=== PATIENT | female | born 1985 | race Caucasian/White ===

== ENCOUNTER → 2017-12-14 12:51 | Outpatient (CLI) | payer OTHER, SELFPAY ==
[2017-12-14 15:15] LABS: HCG Quantitative /Beta subunit 56.27 mIU/mL
== END ==
PROVIDERS: Visit Provider Obstetrics & Gynecology
DX: N91.2 Amenorrhea, unspecified (principal)
CPT/HCPCS: 36415; 84702

== ENCOUNTER → 2018-07-11 14:01 | Outpatient (CLI) | payer OTHER, SELFPAY ==
--- NOTE | 2018-07-11 | DI.US.S_ITS ---
PROCEDURE: US PERIPH VENOUS LOW EXTREM LT INDICATIONS: Pain in left lower leg TECHNIQUE: Real-time imaging, as well as color and pulse Doppler interrogation, were performed of the lower extremity deep veins from the inguinal ligament to the popliteal fossa. COMPARISON: None. FINDINGS: The common femoral, femoral and popliteal veins are normally compressible, and free of intraluminal thrombus. Color and pulse Doppler demonstrate normal phasic intraluminal flow. There is normal augmentation response to distal compression maneuver. IMPRESSION: No deep venous thrombosis identified within the left lower extremity. Dictated by: Aristides [place] [facility] Interpreted: Chante Silver MD on 07/11/2018 at 15:23 Approved by: Chante Silver MD, PhD on 07/11/2018 at 18:04
== END ==
PROVIDERS: PCP Internal Medicine; Visit Provider Internal Medicine
DX: M79.662 Pain in left lower leg (principal)
CPT/HCPCS: 93971

== ENCOUNTER → 2019-02-22 10:35 | Outpatient (CLI) | payer BC, SELFPAY ==
--- NOTE | 2019-02-22 | DI.US.S_ITS ---
PROCEDURE: US OB <= 14 WEEKS FETUS INDICATIONS: INITIAL SIZING AND DATING OUTSIDE/PRIOR DATING DATA: Last menstrual period (LMP): 12/30/18. . First dating scan (date and location): This study.. Estimated date of delivery (LIYAH) from first dating scan: 10/04/19. TECHNIQUE: Real-time scanning was performed of the fetus and maternal pelvic organs, with image documentation. Endovaginal scanning was also performed to better visualize the fetus and maternal ovaries. COMPARISON: None. FINDINGS: Embryo: [place]-rump length 1.6 cm correlates with a gestational age of 8 weeks 0 days, plus or -5 days. heart rate 158 beats per minute. Measurement variability in dating: +/- 4 weeks by LMP, +/- 7 days by mean sac diameter (use before 6 weeks gestation if crown-rump length not able to be measured), +/- 5 days by crown-rump length (up to 8 weeks 6 days gestation), +/- 7 days by crown-rump length (up to 13 weeks 6 days gestation). Maternal organs: Ovaries not seen on the right and normal on the left with a corpus luteum cyst. Limited images through the kidneys demonstrate no hydronephrosis. IMPRESSION: Single living intrauterine gestation 8 weeks 0 days gestational age, with delivery date projected to be centered on 10/04/19, plus or -5 days. Dictated by: Tom Chen M.D. on 02/22/2019 at 14:53 Approved by: Tom Chen M.D. on 02/22/2019 at 15:06
== END ==
PROVIDERS: PCP Internal Medicine; Visit Provider Internal Medicine
DX: Z34.91 Encounter for supervision of normal pregnancy, unspecified, first trimester (principal); Z3A.08 8 weeks gestation of pregnancy
CPT/HCPCS: 76801; 76817

== ENCOUNTER 2019-03-22 02:02 | Emergency (ER) | payer BC, SELFPAY ==
[2019-03-22 02:11] VITALS: BP 130/64; PULSE 104; RESP 16; TEMP 36.8; O2SAT 98; BMI 56.1
--- NOTE | 2019-03-22 02:18 | ED.PREGNANCY ---
HPI - General Chief complaint: OB/Uterine Contractions Stated complaint: 12 weeks - bleeding Time Seen by Provider: 03/22/19 02:18 Source: patient Mode of arrival: Family Vehicle Limitations: no limitations History of Present Illness HPI Narrative: The patient is . Her LMP was December 2018. She had an ultrasound identifying an 8 week intrauterine . About noon today she developed vaginal bleeding. She describes ongoing, heavy bleeding. She has no cramping. She did not pass tissue. She has had no recent illness, no fever chills. She has no GI complaints of nausea, vomiting diarrhea. She is not having abdominal pain. She has no urinary symptoms. She is aware that her blood type is A positive. Patient : Yes Review of Systems Constitutional Constitutional: Denies chills, Denies fatigue and Denies fever(s) Cardiovascular Cardiovascular: Denies chest pain and Denies dyspnea Respiratory Respiratory: Denies dyspnea Gastrointestinal Gastrointestinal: Denies abdominal pain, Denies constipation, Denies cramping, Denies diarrhea and Denies vomiting Genitourinary Comments: Heavy vaginal bleeding Musculoskeletal Musculoskeletal: Denies back pain Integumentary/Breasts Skin/Breast: Denies rash and Denies sores Endocrine Endocrine: Denies fatigue PMFSH - Past Medical History Medical history: Reports no medical history Surgical history: Reports no surgical history Patient : Yes Psychiatric history: Reports no psych history Exam Initial Vital Signs Initial Vital Signs: Vital Signs Temperature 98.3 F 03/22/19 02:11 Pulse Rate 104 H 03/22/19 02:11 Respiratory Rate 16 03/22/19 02:11 Blood Pressure 130/64 03/22/19 02:11 Pulse Oximetry 98 03/22/19 02:11 Const General: cooperative and well developed Nutritional Appearance: well nourished Other: Very upset. Resp Effort & Inspection: normal respiratory effort and able to speak in complete sentences Auscultation: clear to auscultation bilaterally, no rales, no rhonchi and no wheezes Cardio Rate: regular rate Rhythm: regular rhythm Heart Sounds: S1 normal, no click, no gallops, no murmurs and no rubs Pulses: normal peripheral pulses GI Inspection: non-distended Palpation: soft, no hepatosplenomegaly, No guarding, No pulsatile mass and No tender Auscultation: normal bowel sounds Back/Spine/Pelvis Back: No CVA tenderness Skin General: no rashes or lesions noted Neuro General: alert, oriented x3, gait normal and no focal motor deficits Speech: speech normal Extrem General: No edema Course Orders Ordered: ED Orders 03/22/19 02:34 US OB <= 14 weeks fetus Stat 03/22/19 02:53 ABO RH Type Urgent CBC Auto Diff [Complete Blood Count AUTO DIFF] Stat Vital Signs Vital signs: Vital Signs - 8 hr 03/22/19 02:11 Temperature 98.3 F Pulse Rate 104 H Respiratory Rate 16 Blood Pressure 130/64 Pulse Oximetry 98 MDM - OB/Uterine Contractions Lab Data Result diagrams: 03/22/19 02:53 Labs: Lab Results 03/22/19 03/22/19 Range/Units 02:53 02:53 WBC 8.6 (4.5-11.0) X10^3/uL RBC 4.59 (4.0-5.2) X10^6/uL Hgb 13.6 (12.0-16.0) g/dL Hct 40.2 (36-46) % MCV 87.6 (80-100) fL MCH 29.7 (26-34) PG MCHC 33.9 (30-36) % RDW 13.3 (11.6-14.8) % Plt Count 265 (150-400) X10^3/uL Neut % (Auto) 75.2 H (50-75) % Lymph % (Auto) 17.8 L (25-40) % [place] % (Auto) 5.6 (3-14) % Eos % (Auto) 0.9 L (2-4) % Baso % (Auto) 0.5 (0-2) % Neut # (Auto) 6500 (9205-6674) /uL Lymph # (Auto) 1500 (7022-8592) /uL [place] # (Auto) 500 (0-900) /uL Eos # (Auto) 100 (0-450) /uL Baso # (Auto) 0 (0-100) /uL Blood Type A Positive Urine Dip Bedside Urine Glucose Negative Bedside Urine Bilirubin - Negative Bedside Urine Ketone - Negative Urine Specific [place] 1.010 Bedside Urine Occult Blood +++ Bedside Urine pH 6.5 Bedside Urine Protein - Negative Bedside Urine Urobilinogen - Negative Bedside Urine Nitrite - Negative Bedside Urine Leukocytes - Negative Esterase Imaging Data Ob ultrasound: Radiologist's Impression: 12+5 healthy IUP. No source of bleeding identified. Discharge Plan Departure Patient Disposition: Home Clinical Impression: 12 weeks gestation of , First trimester bleeding Instructions: DI for Threatened Activity Restrictions/Additional Instructions: Ultrasound tonight reveals a 12+ 5 week healthy . No source of bleeding was identified. Rest at home. Follow-up with your OB provider over the next few days. Return here as needed. Referrals: Zoraida Chin ARNP [Primary Care Provider] -
--- NOTE | 2019-03-22 02:34 | DI.US.S_ITS ---
PROCEDURE: US OB <= 14 WEEKS FETUS INDICATIONS: BLEEDING OUTSIDE/PRIOR DATING DATA: Last menstrual period (LMP): 12/30/18. First dating scan (date and location): 02/22/19. Estimated date of delivery (LIYAH) from first dating scan: 10/04/19. TECHNIQUE: Real-time scanning was performed of the fetus and maternal pelvic organs, with image documentation. Endovaginal scanning was also performed to better visualize the fetus and maternal ovaries. COMPARISON: Merged With [facility], , OB <= 14 WEEKS FETUS, 02/22/2019, 11:13. FINDINGS: Embryo: Combined data from BPD, head circumference, abdominal circumference and femur length yield a current gestational age of 12 weeks 5 days, and from first OB ultrasound current estimated gestational age would be 12 weeks 0 days. This is within the range of measurement variability, appropriate interval growth. Measurement variability in dating: +/- 4 weeks by LMP, +/- 7 days by mean sac diameter (use before 6 weeks gestation if crown-rump length not able to be measured), +/- 5 days by crown-rump length (up to 8 weeks 6 days gestation), +/- 7 days by crown-rump length (up to 13 weeks 6 days gestation). Maternal organs: Ovaries not seen.. Limited images through the kidneys demonstrate no hydronephrosis. IMPRESSION: Appropriate interval growth, no anomalies seen. Limited early gestation examination, and followup anatomic survey is recommended at approximately 20 weeks gestation. A perigestational hemorrhage is not found nor is there evidence of placenta previa.. Dictated by: Tom Chen M.D. on 03/22/2019 at 12:03 Approved by: Tom Chen M.D. on 03/22/2019 at 12:07
[2019-03-22 03:14] LABS: Add Manual Diff / Slide Review NO; Basophils Absolute Auto 0 /uL (0-100); Basophils Percent Auto 0.5 % (0-2); Eosinophils Absolute Auto 100 /uL (0-450); Eosinophils Percent Auto 0.9 % (2-4); Hematocrit 40.2 % (36-46); Hemoglobin 13.6 g/dL (12.0-16.0); Lymphocytes Absolute Auto 1500 /uL (1100-4500); Lymphocytes Percent Auto 17.8 % (25-40); Mean Corpuscular HGB Conc 33.9 % (30-36); Mean Corpuscular Hemoglobin 29.7 PG (26-34); Mean Corpuscular Volume 87.6 fL (80-100); Monocytes Absolute Auto 500 /uL (0-900); Monocytes Percent Auto 5.6 % (3-14); Neutrophils Absolute Auto 6500 /uL (1500-7000); Neutrophils Percent Auto 75.2 % (50-75); Platelet Count 265 X10^3/uL (150-400); Red Blood Cell Count 4.59 X10^6/uL (4.0-5.2); Red Cell Distribution Width 13.3 % (11.6-14.8); White Blood Cell Count 8.6 X10^3/uL (4.5-11.0)
== END 2019-03-22 04:34 | disposition home or self-care (01) ==
PROVIDERS: Emergency Provider Emergency Medicine; PCP Internal Medicine
DX: O20.0 Threatened abortion (principal); Z3A.12 12 weeks gestation of pregnancy
CPT/HCPCS: 36415; 76801; 76817; 81003; 85025; 86900; 86901; 99283; 99284

== ENCOUNTER → 2019-04-08 09:22 | Outpatient (CLI) | payer OTHER, SELFPAY ==
--- NOTE | 2019-04-08 09:27 | DIET.PN ---
Dietary Progress Note Assessment: 14w, food aversions: no chicken, eggs, no particular cravings at this time but not hungry but gets hungry fast. Pt is 346# and does not want to gain weight during , would prefer to stay wt stable or lose weight. Also wants to ensure she puts in place healthy habits now to support her health and that of baby. Pt is looking for healthy things which are easy to support baby's growth, Dr. Cole patient. HT: 5'6 WT: 346# UBW: -10# BMI:55.8 Usual Intake: 530 wakes preps lunches and snacks B(630am): oatmeal c cinnamon and sugar, fried egg sandwich c moses or ketchup on white bread, PB toast, water Sn(830): swedish yogurt, smart pop popcorn, apple and mini oranges, almonds, carrots, sliced cheese L (2pm): vegetable soup, PBandJ, [employer]-chop salad, leftovers, water not usually snack here D: pizza (marshallese jernigan pineapple, cheese, pepperoni), veggie sandwich [employer], grilled hamburgers, spaghetti c hamburger Bed at 9pm Takes MVI no current physical activity but sometimes walks with coworker around [employer] plans to Nutrition Diagnosis: obesity r/t undesirable food choices aeb pt reliant on convenience foods c high fat and high carbohydrates, 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 Interventions: 1. Pt will walk 10 minutes or more after dinner and possibly bigger walk on weekends. 2. Pt will follow gestational diabetic diet sticking to 30g CHO per meal and 15g for snacks as much as possible. 3. Pt will focus on getting 100g PRO per day, healthy fats, iron foods, and 3 servings calcium per day to support baby growth. EER: 2,000kcal, 100g PRO (0.8g/kg) Monitoring/Evaluations: pt will schedule f/u after GD testing.
== END ==
PROVIDERS: PCP Internal Medicine; Referring Provider Student in an Organized Health Care Education/Training Program; Visit Provider Student in an Organized Health Care Education/Training Program
DX: O99.212 Obesity complicating pregnancy, second trimester (principal); Z3A.14 14 weeks gestation of pregnancy; Z71.3 Dietary counseling and surveillance; Z68.43 Body mass index [BMI] 50.0-59.9, adult
CPT/HCPCS: 97802

== ENCOUNTER → 2019-08-16 12:12 | Outpatient (CLI) | payer OTHER, SELFPAY ==
--- NOTE | 2019-08-16 | DI.US.S_ITS ---
PROCEDURE: US OB LIMITED INDICATIONS: GROWTH OUTSIDE/PRIOR DATING DATA: Last menstrual period (LMP): 12/30/18. LMP-based estimated date of delivery (LIYAH): 10/07/19. First dating scan (date and location): 02/22/19. Estimated date of delivery (LIYAH) from first dating scan: 10/04/19. TECHNIQUE: Real-time scanning was performed of the fetus, with image documentation and biometric measurements. Endovaginal scanning: Not needed for this study. COMPARISON: [facility], OB <= 14 WEEKS FETUS, 03/22/2019, 3:36. [facility], OB <= 14 WEEKS FETUS, 02/22/2019, 11:13. FINDINGS: General: A single living intrauterine gestation is present. Presentation: Vertex Placenta: Placental position is posterior, without previa. Amniotic fluid index: 13.1 cm, normal range is 5-24 cm. heart rate: 144 beats per minute. Maternal cervical canal: 4.4 cm long. Normal lower limit is 2.5 cm. biometrics: Biparietal diameter: 8.3 cm, 33 weeks 4 days Head circumference: 32.0 cm, 36 weeks 1 day Abdominal circumference: 29.3 cm, 33 weeks 2 days Femur length: 6.9 cm, 33 weeks 2 days Estimated gestational age from initial scan: 33 weeks 0 days Composite gestational age from present scan: 34 weeks 1 day Estimated weight and percentile: 2238 g, 61st percentile Measurement variability for biometric dating: +/- 7 days from 14 weeks to 15 weeks 6 days gestation, +/- 10 days from 16 weeks to 21 weeks 6 days gestation, +/- 2 weeks from 22 weeks to 27 weeks 6 days gestation, +/- 3 weeks for 28 weeks gestation or later. weight reference: 4500 g or EFW >90/95% is considered macrosomia or large for gestational age. EFW <10% is small for gestational age. EFW 5% or less is considered intra-uterine growth restriction. Other: Not applicable. IMPRESSION: Apart from interval growth, no anomaly seen. Somewhat limited quality of visualization due to body habitus. Dictated by: Tom Chen M.D. on 08/16/2019 at 16:25 Approved by: Tom Chen M.D. on 08/16/2019 at 16:32
== END ==
PROVIDERS: PCP Internal Medicine; Referring Provider Student in an Organized Health Care Education/Training Program; Visit Provider Student in an Organized Health Care Education/Training Program
DX: Z36.89 Encounter for other specified antenatal screening; Z3A.34 34 weeks gestation of pregnancy
CPT/HCPCS: 76815

== ENCOUNTER → 2019-09-06 12:48 | Outpatient (ROUT) | payer OTHER, SELFPAY ==
[2019-09-07 14:23] LABS: Strep Grp B PCR NEG for Grp B Strep
== END ==
PROVIDERS: PCP Internal Medicine; Visit Provider Student in an Organized Health Care Education/Training Program
DX: Z34.90 Encounter for supervision of normal pregnancy, unspecified, unspecified trimester (principal)
CPT/HCPCS: 87653

== ENCOUNTER 2019-09-20 13:12 | Observation (INO) | payer OTHER, SELFPAY ==
--- NOTE | 2019-09-20 13:18 | DI.US.S_ITS ---
PROCEDURE: US OB BIOPHYSICAL PROFILE INDICATIONS: HTN OUTSIDE/PRIOR DATING DATA: Last menstrual period (LMP): December 30, 2018 LMP-based estimated date of delivery (LIYAH): October 07, 2019 . First dating scan (date and location): February 22, 2019, [facility]. Estimated date of delivery (LIYAH) from first dating scan: October 04, 2019 . TECHNIQUE: Real-time scanning was performed of the fetus for biophysical profile, with image documentation. Color and pulse Doppler interrogation was also performed of the umbilical artery near its insertion into the placenta. COMPARISON: None. FINDINGS: General: A single living intrauterine gestation is present. Presentation: Vertex Placenta: Placental position is fundal , without previa. Amniotic fluid index: 14.1 cm, normal range is 5-24 cm. heart rate: 121 beats per minute. Maternal cervical canal: Not Seen in late stage of Estimated gestational age from initial scan: 38 weeks 0 days. Biophysical profile: Tone: 2 points. Movement: 2 points. Respiration: 2 points. Largest pocket of fluid: 2 points. IMPRESSION: Single living late 3rd trimester intrauterine . Ultrasound biophysical profile is 10/13 Dictated by: Phill Cervantes M.D. on 09/20/2019 at 16:37 Approved by: Phill Cervantes M.D. on 09/20/2019 at 16:40
[2019-09-20 14:35] LABS: Add Manual Diff / Slide Review NO; Basophils Absolute Auto 0 /uL (0-100); Basophils Percent Auto 0.4 % (0-2); Eosinophils Absolute Auto 0 /uL (0-450); Eosinophils Percent Auto 0.4 % (2-4); Hematocrit 38.9 % (36-46); Hemoglobin 13.2 g/dL (12.0-16.0); Lymphocytes Absolute Auto 1300 /uL (1100-4500); Lymphocytes Percent Auto 17.3 % (25-40); Mean Corpuscular Hemoglobin 30.6 PG (26-34); Mean Corpuscular Volume 90.1 fL (80-100); Monocytes Absolute Auto 500 /uL (0-900); Monocytes Percent Auto 6.4 % (3-14); Neutrophils Absolute Auto 5700 /uL (1500-7000); Neutrophils Percent Auto 75.5 % (50-75); Platelet Count 138 X10^3/uL (150-400); Red Blood Cell Count 4.32 X10^6/uL (4.0-5.2); Red Cell Distribution Width 14.3 % (11.6-14.8); White Blood Cell Count 7.6 X10^3/uL (4.5-11.0)
[2019-09-20 14:48] LABS: Alanine Aminotransferase 15 IU/L (<35); Albumin 3.1 g/dL (3.5-5.0); Albumin Globulin Ratio 1.2 (1.0-2.8); Alkaline Phosphatase 167 U/L (38-126); Aspartate Aminotransferase 20 IU/L (14-36); BUN Creatinine Ratio 16.9 (6-22); Bilirubin Total 0.5 mg/dL (0.2-1.3); Blood Urea Nitrogen 13 mg/dL (7-17); Calcium 9.1 mg/dL (8.4-10.2); Carbon Dioxide 21 mmol/L (22-32); Chloride 107 mmol/L (98-107); Estimated Glomerular Filt Rate > 60.0 mL/min (>60); Globulin 2.5 g/dL (1.7-4.1); Glucose 73 mg/dL (70-100); HEMOLYSIS < 15 (0-50); Potassium 4.3 mmol/L (3.4-5.1); Sodium 132 mmol/L (137-145); Total Protein 5.6 g/dL (6.3-8.2); Uric Acid 7.5 mg/dL (2.5-6.2)
[2019-09-20 16:28] LABS: Creatinine Urine Random 82.9 mg/dL; Protein (Total) Urine Random 10 mg/dL (0-12); Protein Creatinine Ratio Urine 0.12 GRAM/24H
== END 2019-09-20 17:25 | disposition home or self-care (01) ==
PROVIDERS: Admitting Provider Student in an Organized Health Care Education/Training Program; PCP Internal Medicine; Referring Provider Student in an Organized Health Care Education/Training Program; Visit Provider Student in an Organized Health Care Education/Training Program
DX: O13.3 Gestational [pregnancy-induced] hypertension without significant proteinuria, third trimester (principal); O09.513 Supervision of elderly primigravida, third trimester; Z3A.38 38 weeks gestation of pregnancy
CPT/HCPCS: 36415; 59025; 59050; 76819; 80053; 82570; 84156; 84550; 85025; G0378; G0379

== ENCOUNTER 2019-09-23 14:10 | Inpatient (IN) | payer OTHER, SELFPAY ==
--- NOTE | 2019-09-23 14:34 | DI.US.S_ITS ---
PROCEDURE: US OB BIOPHYSICAL PROFILE INDICATIONS: POSSIBLE PRE-ECLAMPSIA OUTSIDE/PRIOR DATING DATA: Last menstrual period (LMP): December 30, 2018 . LMP-based estimated date of delivery (LIYAH): October 07, 2019 . First dating scan (date and location): February 22, 2019, [facility] . Estimated date of delivery (LIYAH) from first dating scan: October 04, 2019 . TECHNIQUE: Real-time scanning was performed of the fetus, with image documentation and biometric measurements. Biophysical profile was also obtained. Endovaginal scanning: Not performed COMPARISON: [facility], , OB BIOPHYSICAL PROFILE, 09/20/2019, 13:42. FINDINGS: General: A single living intrauterine gestation is present. Presentation: Vertex. Placenta: Placental position is fundal , without previa. Amniotic fluid index: 15.9 cm, normal range is 5-24 cm. heart rate: 136 beats per minute. Maternal cervical canal: Not visualized Biophysical profile: Tone: 2 points. Movement: 2 points. Respiration: 2 points. Largest pocket of fluid: 2 points. IMPRESSION: 8/8 biophysical profile. Dictated by: Anna Montalvo M.D. on 09/23/2019 at 15:56 Approved by: Anna Montalvo M.D. on 09/23/2019 at 15:57
[2019-09-23 15:08] LABS: Add Manual Diff / Slide Review NO; Basophils Absolute Auto 0 /uL (0-100); Basophils Percent Auto 0.4 % (0-2); Eosinophils Absolute Auto 0 /uL (0-450); Eosinophils Percent Auto 0.5 % (2-4); Hematocrit 36.5 % (36-46); Hemoglobin 12.6 g/dL (12.0-16.0); Lymphocytes Absolute Auto 1400 /uL (1100-4500); Lymphocytes Percent Auto 18.3 % (25-40); Mean Corpuscular HGB Conc 34.4 % (30-36); Monocytes Absolute Auto 600 /uL (0-900); Monocytes Percent Auto 7.5 % (3-14); Neutrophils Absolute Auto 5500 /uL (1500-7000); Neutrophils Percent Auto 73.3 % (50-75); Platelet Count 134 X10^3/uL (150-400); Red Blood Cell Count 4.06 X10^6/uL (4.0-5.2); Red Cell Distribution Width 14.6 % (11.6-14.8); White Blood Cell Count 7.6 X10^3/uL (4.5-11.0)
[2019-09-23 15:20] LABS: Aspartate Aminotransferase 19 IU/L (14-36); BUN Creatinine Ratio 14.9 (6-22); Blood Urea Nitrogen 10 mg/dL (7-17); Estimated Glomerular Filt Rate > 60.0 mL/min (>60); Uric Acid 7.4 mg/dL (2.5-6.2)
[2019-09-23 15:47] LABS: Creatinine Urine Random 42.8 mg/dL; Protein (Total) Urine Random 15 mg/dL (0-12); Protein Creatinine Ratio Urine 0.35 GRAM/24H
--- NOTE | 2019-09-23 16:12 | PM.OBHP.1 ---
OB HPI Date/Time Date of admission: 09/23/19 Time Patient Seen: 19:02 History of Present Condition Chief complaint: NST Narrative: Eda Stacy is a 34 year old at 38w3d with LIYAH of 10/04/2019 perfirst trimester ultrasound. She presents with preeclampsia with severe features. Her course has been complicated by: 1. Elevated blood pressure at 38w0d. Was 160/110 in clinic but otherwise completely asymptomatic. Was sent to OB triage for serial blood pressure monitoring. Her blood pressure was initially elevated but did come down into the normal range. Protein to creatinine ratio 0.12. BPP 8/8. Uric acid, 7.5, platelets 138 (baseline 180, 2 weeks prior). She was sent home on bedrest and completed a 24 hour urine protein which was 390 yesterday. This morning, she reported that her home blood pressures were ranging between 130-150/80-100 and she was brought back for induction. Initial blood pressures were in the severe range 177/96 and did not come down, after labetalol, she is now 140/80s. PIH labs significant for an elevated protein:creatinine ratio of 0.35, uric acid of 7.4 and platelets of 134. BPP again 8/8. 2. Morbid obesity, pregravid BMI 57.83. Patient has been on a prophylactic gestational diet from the beginning of her . She has had a net 5 pound weight loss. Baseline A1c 5.0 on 04/05/18. Second trimester screening for gestational diabetes at 23 WGA within normal limits, third trimester glucola 126. Has completed anesthesia consult for epidural and pre-delivery planning due to obesity. Level II US for survey, within normal limits on 05/30/19. US for growth at 34 WGA, 61%. Has been on prophylactic aspirin 81 mg by mouth qd from 12 weeks to reduce risk of preeclampsia. 3. Hypothyroidism, TSH within normal limits at intake, 23 WGA, and 32 WGA. On levothyroxine 75 mcg by mouth qd. 4. Peripheral edema with venous stasis, chronic, likely secondary to obesity. Has been using compressions stockings. 5. First trimester bleeding, resolved. LABS/IMAGING: ABO A positive, antibody negative on 03/13/2019. Rubella immune. Hepatitis-B surface antigen negative. HIV, HSV 1 and 2 negative. GC/chlamydia negative. Treponemal antibody negative. Varicella titer positive. Pap smear plus HPV DNA negative on 03/09/2019. Urine culture negative on 03/09/2019. Hemoglobin/hematocrit 12.9/38.1 on 03/13/2019. Repeat hemoglobin/hematocrit 13.1/39.3 09/06/2019. TSH within normal limits. 1 hour Glucola negative on 06/07/19 and 07/19/19. GBS negative on 09/06/2019. NIPT negative, 03/13/2019, male. Dating US: 02/23/2020, 8w0d, LIYAH 10/04/2019 First trimester US for bleedin03/22/19, normal Anatomy Scan: 05/09/19, normal, EFW 87%, posterior placenta, no previa Growth Scan: 08/16/19, EFW 61%, 2238 g, RYAN 13.1, vertex BPP: 09/20/19, 10/13 BPP: 09/23/19, 10/13 OBSTETRIC HISTORY: GYNECOLOGICAL HISTORY: Chlamydia, distant history PAST MEDICAL HISTORY: Morbid obesity Hypothyroidism Dependent edema, chronic Cellulitis, leg Depression/anxiety PAST SURGICAL HISTORY: None FAMILY HISTORY: Mother: asthma, depression SOCIAL HISTORY: Engaged to [employer], [employer], involved and supportive. 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 Associates degree. No illicit drug use or alcohol use during . Evaluation Evaluation Laboratory results: Laboratory Tests 09/23/19 09/23/19 09/23/19 15:00 15:00 15:00 WBC 7.6 RBC 4.06 Hgb 12.6 Hct 36.5 MCV 90.0 MCH 31.0 MCHC 34.4 RDW 14.6 Plt Count 134 L Neut % (Auto) 73.3 Lymph % (Auto) 18.3 L [place] % (Auto) 7.5 Eos % (Auto) 0.5 L Baso % (Auto) 0.4 Neut # (Auto) 5500 Lymph # (Auto) 1400 [place] # (Auto) 600 Eos # (Auto) 0 Baso # (Auto) 0 BUN 10 Creatinine 0.67 Estimated GFR > 60.0 BUN/Creatinine Ratio 14.9 Uric Acid 7.4 H AST 19 U Random Total Protein 15 H Urine Creatinine 42.8 Protein/Creatinin Ratio 0.35 PFSH Social History Smoking Status: Never smoker Meds Home Medications and Allergies Allergies Allergy/AdvReac Type Severity Reaction Status Date / Time Sulfa (Sulfonamide AdvReac Severe Swelling Verified 09/23/19 17:49 Antibiotics) of the Eye Review of Systems Review of Systems ROS: Yes All systems reviewed with the patient and are negative except as otherwise documented Exam Narrative Exam Narrative: General: NAD Skin: Color unremarkable, no rash nor lesions HEENT: Neck supple with midline trachea Lungs: CTAB Heart: Normal rate, and regular rhythm, S1, S2 normal, no murmur, click, rub or gallop Abdomen: Gravid, soft, non-tender Extremities: DTRs 2+ and symmetric, no clonus or cyanosis. 2+ pitting edema to level of bilateral knees. Pelvis: Normal female external genitalia Presentation: vertex Cervix: FT/0/-3/soft/posterior Monitoring: Variability: Moderate Baseline: 130s Accelerations: Present Decelerations: Absent Contractions: Every 3-7 minutes Strength: Moderate Objective Labs Result Diagrams: 09/23/19 17:25 09/23/19 15:00 Labs: Laboratory Results - last 24 hr 09/23/19 09/23/19 09/23/19 15:00 15:00 15:00 WBC 7.6 RBC 4.06 Hgb 12.6 Hct 36.5 MCV 90.0 MCH 31.0 MCHC 34.4 RDW 14.6 Plt Count 134 L Neut % (Auto) 73.3 Lymph % (Auto) 18.3 L [place] % (Auto) 7.5 Eos % (Auto) 0.5 L Baso % (Auto) 0.4 Neut # (Auto) 5500 Lymph # (Auto) 1400 [place] # (Auto) 600 Eos # (Auto) 0 Baso # (Auto) 0 BUN 10 Creatinine 0.67 Estimated GFR > 60.0 BUN/Creatinine Ratio 14.9 Uric Acid 7.4 H AST 19 U Random Total Protein 15 H Urine Creatinine 42.8 Protein/Creatinin Ratio 0.35 Assessment and Plan Assessment and Plan Assessment and Plan narrative: 1. IUP at 38w3d 2. 3. Preeclampsia with severe features (hypertension) 4. Thrombocytopenia, risk for HELLP 5. Morbid obesity, pre-gravid BMI 57.83 6. Hypothyroidism, controlled, chronic 7. Peripheral edema venous stasis, chronic 8. Depression/anxiety, chronic Plan: Admit to Labor and delivery with preeclampsia orders. Patient has had one dose of labetalol with improvement of blood pressure. Will administer labetalol 20 mg IV for SBP > 160 or DBP >105. Magnesium 6 g bolus followed by 2 g per hour infusion. Patient has an unripe cervix, will proceed with Cytotec ripening followed by Pitocin induction. Patient has been counseled regarding increased risks of gestational diabetes, preeclampsia, large for gestational age infants, shoulder dystocia, etc. since her intake appointment secondary to her morbid obesity. She has had a net weight gain of -5 lb throughout this and she did not develop gestational diabetes. EFW at 33 WGA was 61%. Anesthesia was consulted at approximately 35 WGA with respect to delivery planning, she is approved for an epidural. Anticipate vaginal delivery. Questions answered, appropriate consents will be signed.
[2019-09-23 17:20] VITALS: BP 183/94; PULSE 53
[2019-09-23] MEDS: LABETALOL 100 MG TABLET 200 MG PO (17:20)
[2019-09-23] MEDS: miSOPROStoL 200 MCG TABLET 50 MCG PO (17:21)
[2019-09-23 17:37] LABS: Add Manual Diff / Slide Review NO; Basophils Absolute Auto 0 /uL (0-100); Basophils Percent Auto 0.6 % (0-2); Eosinophils Absolute Auto 100 /uL (0-450); Eosinophils Percent Auto 0.8 % (2-4); Hematocrit 40.2 % (36-46); Hemoglobin 13.7 g/dL (12.0-16.0); Lymphocytes Absolute Auto 1700 /uL (1100-4500); Lymphocytes Percent Auto 20.5 % (25-40); Mean Corpuscular Hemoglobin 30.8 PG (26-34); Mean Corpuscular Volume 90.4 fL (80-100); Monocytes Absolute Auto 600 /uL (0-900); Monocytes Percent Auto 7.2 % (3-14); Neutrophils Absolute Auto 5800 /uL (1500-7000); Neutrophils Percent Auto 70.9 % (50-75); Platelet Count 151 X10^3/uL (150-400); Red Blood Cell Count 4.44 X10^6/uL (4.0-5.2); Red Cell Distribution Width 14.4 % (11.6-14.8); White Blood Cell Count 8.1 X10^3/uL (4.5-11.0)
[2019-09-23 17:51] LABS: COVID19 -Nasal RAPID Negative (Negative)
[2019-09-23] MEDS: LACTATED RINGERS 1,000 ML 50 ML IV ×2 (17:54→18:00)
[2019-09-23] MEDS: MAGNESIUM SULFATE 4 GM/100 ML PIGGYBACK IV (17:55)
[2019-09-23] MEDS: MAGNESIUM SULFATE 2 GM/50 ML PIGGYBACK IV (19:15)
[2019-09-23] MEDS: MAGNESIUM SULFATE 20 GM/500 ML IV.SOLN IV (19:50)
--- NOTE | 2019-09-23 22:53 | PM.OBPNLAB ---
Date/Time Date Patient Seen: 09/23/19 Time Patient Seen: 22:54 Pain Control Comments: Spoke with nursing staff on phone regarding blood pressures over the last few hours. BPs have remained in the 140/80s, patient denies MCMAHON, n/v, RUQ pain, visual changes, or worsening edema. Repeat CBC showed normalization of platelets. Magnesium is infusing at 2 gm/hour. Second dose of cytotec has not been administered (1 hour ovedue) due to staffing shortages. Hopeful for next dose of cytotec within the hour. baseline has dropped from baseline of 135 to 110-115 since magnesium started. Mg level pending. Assessment: 1. IUP at 38w3d 2. 3. Preeclampsia with severe features (hypertension) 4. Thrombocytopenia, resolved 5. Morbid obesity, pre-gravid BMI 57.83 6. Hypothyroidism, controlled, chronic 7. Peripheral edema venous stasis, chronic 8. Depression/anxiety, chronic Plan: Discussed possible need for transfer if staffing needs cannot be met to proceed with timely induction. Will watch closely over the next few hours.
[2019-09-23 23:05] LABS: Magnesium 4.5 mg/dL (1.6-2.3)
[2019-09-23] MEDS: miSOPROStoL 25 MCG TABLET 50 MCG PO (23:08)
[2019-09-23 23:11] VITALS: BP 165/82; PULSE 59
[2019-09-23] MEDS: LABETALOL 20 MG/4 ML SYRINGE IV (23:11)
[2019-09-24] MEDS: miSOPROStoL 25 MCG TABLET 50 MCG PO (03:53)
[2019-09-24 05:31] LABS: Add Manual Diff / Slide Review NO; Basophils Absolute Auto 0 /uL (0-100); Basophils Percent Auto 0.4 % (0-2); Eosinophils Absolute Auto 0 /uL (0-450); Eosinophils Percent Auto 0.5 % (2-4); Hematocrit 38.8 % (36-46); Hemoglobin 12.9 g/dL (12.0-16.0); Lymphocytes Absolute Auto 1800 /uL (1100-4500); Lymphocytes Percent Auto 20.9 % (25-40); Mean Corpuscular HGB Conc 33.2 % (30-36); Mean Corpuscular Hemoglobin 30.3 PG (26-34); Mean Corpuscular Volume 91.3 fL (80-100); Monocytes Absolute Auto 600 /uL (0-900); Monocytes Percent Auto 7.7 % (3-14); Neutrophils Absolute Auto 5900 /uL (1500-7000); Neutrophils Percent Auto 70.5 % (50-75); Platelet Count 144 X10^3/uL (150-400); Red Blood Cell Count 4.25 X10^6/uL (4.0-5.2); White Blood Cell Count 8.4 X10^3/uL (4.5-11.0)
[2019-09-24 05:49] LABS: Alanine Aminotransferase 14 IU/L (<35); Alanine Aminotransferase 15 IU/L (<35); Albumin 2.9 g/dL (3.5-5.0); Albumin Globulin Ratio 1.1 (1.0-2.8); Albumin Globulin Ratio 1.2 (1.0-2.8); Alkaline Phosphatase 173 U/L (38-126); Alkaline Phosphatase 176 U/L (38-126); Aspartate Aminotransferase 22 IU/L (14-36); Aspartate Aminotransferase 26 IU/L (14-36); BUN Creatinine Ratio 14.5 (6-22); Bilirubin Total 0.4 mg/dL (0.2-1.3); Bilirubin Unconjugated 0.4 mg/dL (0.0-1.1); Blood Urea Nitrogen 10 mg/dL (7-17); Calcium 8.7 mg/dL (8.4-10.2); Carbon Dioxide 19 mmol/L (22-32); Chloride 107 mmol/L (98-107); Estimated Glomerular Filt Rate > 60.0 mL/min (>60); Globulin 2.5 g/dL (1.7-4.1); Globulin 2.6 g/dL (1.7-4.1); Glucose 91 mg/dL (70-100); HEMOLYSIS 15 (0-50); HEMOLYSIS < 15 (0-50); Sodium 132 mmol/L (137-145); Total Protein 5.4 g/dL (6.3-8.2); Total Protein 5.5 g/dL (6.3-8.2); Uric Acid 7.5 mg/dL (2.5-6.2)
[2019-09-24 05:55] LABS: Magnesium 5.4 mg/dL (1.6-2.3)
[2019-09-24] MEDS: MAGNESIUM SULFATE 20 GM/500 ML IV.SOLN IV (06:04)
--- NOTE | 2019-09-24 06:56 | PM.OBDS.1 ---
Discharge Providers Provider Date of admission: 09/23/19 14:10 Discharge Date: 09/24/19 Primary care physician: Nataly Cole MD Consults: 09/24/19 Consult to [facility], Dr. Donya Alvarado, consult for preeclampsia with severe features and risk for HELLP 09/23/19 16:10 Consult to Anesthesiology Routine Comment: Consulting Provider: Anesthesiologist Reason for consultation: epidural Discharge provider: Nataly Cole MD Summary Hospital Course Date Patient Seen: 09/24/19 Time Patient Seen: 06:58 Hospital Course: Upon admission, patient's blood pressure was 177/96, it did not come down with repeat blood pressures. She was administered labetalol 200 mg p.o. x1 as IV access was not yet established. Her blood pressure did come down to 140/80s thereafter. She was also administered a 6 g bolus of magnesium followed by 2 grams/hour infusion. PIH labs significant for an elevated protein:creatinine ratio of 0.35, uric acid of 7.4 and platelets of 138. BPP 8/8. Throughout the night, patient did require 1 additional dose of labetalol, 20 mg IV x1 with good response. However, for the 2nd half of the night, she has remained in the high 150s/90s. This morning she is now sustaining 160s/80s. Due a heart rate of 58, she was given hydralazine x 1 with a drop into the 150s/70s. She continues to deny headache, nausea, vomiting, right upper quadrant pain, visual changes, or worsening edema. DTRs are 2+ and symmetric, no clonus. She does have significant chronic venous stasis with baseline lower extremity edema that has been unchanged in the last few weeks. Repeat platelets approximately 6 hours after admission increased to 151, they are now 144 this morning. heart rate was 135s at baseline, then 110-115 after magnesium and labetalol, now again 130-135s with good accelerations and a few scattered variables. Secondary to automatic serging machine operator shortages, there is an inability to provide intermediate care after 1:00 p.m. today. A concerted effort has been made to find additional help and it is not available. Case was discussed with Dr. Hernandez, on-call AUTOMATIC OPERATOR, and she agrees that as this patient is high risk, transfer to a higher level of care is prudent. Shared decision with patient was made to proceed to transfer to the [facility] where she can have the full resources of a maternal medicine specialist, OBGYN, and NICU if needed. Dr. Donya Alvarado, has kindly agreed to accept patient in transfer of care. She will be transferred by air. COVID-19 negative on 09/23/19. Discharge transfer diagnoses: 1. IUP at 38w4d 2. 3. Preeclampsia with severe features (hypertension) 4. Thrombocytopenia, risk for HELLP 5. Morbid obesity, pre-gravid BMI 57.83 6. Hypothyroidism, controlled, chronic 7. Peripheral edema venous stasis, chronic 8. Depression/anxiety, chronic Status at Discharge Cognitive/behavioral status at discharge: at baseline, oriented Functional status at discharge: independent ambulation Overall status at discharge: patient is not back to baseline Time Spent with Patient Time attestation: Total time spent providing and/or coordinating discharge services: 35 minutes. Greater than 2 hours and 17 minutes from 06:58 to 09:15 was spent [id number] with greater than 50% of the time directed towards stabilizing patient during critical care transport. Objective Labs Result Diagrams: 09/24/19 05:10 09/24/19 05:10 Labs: Laboratory Results - last 24 hr 09/23/19 09/23/19 09/23/19 15:00 15:00 15:00 WBC 7.6 RBC 4.06 Hgb 12.6 Hct 36.5 MCV 90.0 MCH 31.0 MCHC 34.4 RDW 14.6 Plt Count 134 L Neut % (Auto) 73.3 Lymph % (Auto) 18.3 L [place] % (Auto) 7.5 Eos % (Auto) 0.5 L Baso % (Auto) 0.4 Neut # (Auto) 5500 Lymph # (Auto) 1400 [place] # (Auto) 600 Eos # (Auto) 0 Baso # (Auto) 0 Sodium Potassium Chloride Carbon Dioxide BUN 10 Creatinine 0.67 Estimated GFR > 60.0 BUN/Creatinine Ratio 14.9 Glucose Uric Acid 7.4 H Calcium Magnesium Total Bilirubin Conjugated Bilirubin Unconjugated Bilirubin AST 19 ALT Alkaline Phosphatase Total Protein Albumin Globulin Albumin/Globulin Ratio U Random Total Protein 15 H Urine Creatinine 42.8 Protein/Creatinin Ratio 0.35 COVID-19 PCR Blood Type Antibody Screen 07/09/23/19 09/23/19 16:35 17:25 17:25 WBC 8.1 RBC 4.44 Hgb 13.7 Hct 40.2 MCV 90.4 MCH 30.8 MCHC 34.0 RDW 14.4 Plt Count 151 Neut % (Auto) 70.9 Lymph % (Auto) 20.5 L [place] % (Auto) 7.2 Eos % (Auto) 0.8 L Baso % (Auto) 0.6 Neut # (Auto) 5800 Lymph # (Auto) 1700 [place] # (Auto) 600 Eos # (Auto) 100 Baso # (Auto) 0 Sodium Potassium Chloride Carbon Dioxide BUN Creatinine Estimated GFR BUN/Creatinine Ratio Glucose Uric Acid Calcium Magnesium Total Bilirubin Conjugated Bilirubin Unconjugated Bilirubin AST ALT Alkaline Phosphatase Total Protein Albumin Globulin Albumin/Globulin Ratio U Random Total Protein Urine Creatinine Protein/Creatinin Ratio COVID-19 PCR Negative Blood Type A Positive Antibody Screen Negative 09/23/19 09/24/19 09/24/19 22:45 05:10 05:10 WBC 8.4 RBC 4.25 Hgb 12.9 Hct 38.8 MCV 91.3 MCH 30.3 MCHC 33.2 RDW 15.0 H Plt Count 144 L Neut % (Auto) 70.5 Lymph % (Auto) 20.9 L [place] % (Auto) 7.7 Eos % (Auto) 0.5 L Baso % (Auto) 0.4 Neut # (Auto) 5900 Lymph # (Auto) 1800 [place] # (Auto) 600 Eos # (Auto) 0 Baso # (Auto) 0 Sodium Potassium Chloride Carbon Dioxide BUN Creatinine Estimated GFR BUN/Creatinine Ratio Glucose Uric Acid Calcium Magnesium 4.5 H 5.4 H* Total Bilirubin 0.4 Conjugated Bilirubin 0.0 Unconjugated Bilirubin 0.4 AST 26 ALT 15 Alkaline Phosphatase 176 H Total Protein 5.4 L Albumin 2.9 L Globulin 2.5 Albumin/Globulin Ratio 1.2 U Random Total Protein Urine Creatinine Protein/Creatinin Ratio COVID-19 PCR Blood Type Antibody Screen 09/24/19 05:10 WBC RBC Hgb Hct MCV MCH MCHC RDW Plt Count Neut % (Auto) Lymph % (Auto) [place] % (Auto) Eos % (Auto) Baso % (Auto) Neut # (Auto) Lymph # (Auto) [place] # (Auto) Eos # (Auto) Baso # (Auto) Sodium 132 L Potassium 4.0 Chloride 107 Carbon Dioxide 19 L BUN 10 Creatinine 0.69 Estimated GFR > 60.0 BUN/Creatinine Ratio 14.5 Glucose 91 Uric Acid 7.5 H Calcium 8.7 Magnesium Total Bilirubin 0.4 Conjugated Bilirubin Unconjugated Bilirubin AST 22 ALT 14 Alkaline Phosphatase 173 H Total Protein 5.5 L Albumin 2.9 L Globulin 2.6 Albumin/Globulin Ratio 1.1 U Random Total Protein Urine Creatinine Protein/Creatinin Ratio COVID-19 PCR Blood Type Antibody Screen Exam Vital Signs (past 8 hours): - 09/23/19 23:11 Pulse Rate 59 L Blood Pressure 165/82 H Narrative Exam Narrative: General: NAD Skin: Color unremarkable, no rash nor lesions HEENT: Neck supple with midline trachea Lungs: CTAB Heart: Normal rate, and regular rhythm, S1, S2 normal, no murmur, click, rub or gallop Abdomen: Gravid, soft, non-tender Extremities: DTRs 2+ and symmetric, no clonus or cyanosis. 2+ pitting edema to level of bilateral knees. Pelvis: Normal female external genitalia Presentation: vertex Cervix: FT/10/-3/soft/posterior Monitoring: Variability: Moderate Baseline: 130-135s Accelerations: Present Decelerations: Absent Contractions: Every 1-4 minutes Strength: Mild Discharge Plan Discharge Plan Disposition: Xfer Acute Care Hospital Discharge orders & Medications Follow up/Referrals: Zoraida Chin ARNP [Primary Care Provider] - Discharge Data Primary Care Provider: Zoraida Chin Attending Provider: Nataly Cole Admit Date/Time: 09/23/19 14:10
[2019-09-24 07:16] VITALS: BP 163/83; PULSE 60
[2019-09-24] MEDS: HYDRALAZINE 20 MG/ML VIAL 5 MG IV ×2 (07:16→09:15)
[2019-09-24 09:15] VITALS: BP 153/88
== END 2019-09-24 09:30 | disposition short-term general hospital (02) | DRG 832 ==
PROVIDERS: Admitting Provider Student in an Organized Health Care Education/Training Program; PCP Internal Medicine; Referring Provider Student in an Organized Health Care Education/Training Program; Visit Provider Student in an Organized Health Care Education/Training Program
DX: O14.13 Severe pre-eclampsia, third trimester (principal); O99.12 Other diseases of the blood and blood-forming organs and certain disorders involving the immune mechanism complicating childbirth; Z3A.38 38 weeks gestation of pregnancy; O99.214 Obesity complicating childbirth; E66.01 Morbid (severe) obesity due to excess calories; O99.284 Endocrine, nutritional and metabolic diseases complicating childbirth; O12.04 Gestational edema, complicating childbirth; F32.9 Major depressive disorder, single episode, unspecified; F41.9 Anxiety disorder, unspecified
CPT/HCPCS: 36415; 76819; 80053; 80076; 82570; 83735; 84156; 84450; 84550; 85025; 86850; 86900; 86901; 87635; G0378; G0379; J0360; J3475; S0191

== ENCOUNTER → 2021-01-24 10:48 | Outpatient (CLI) | payer OTHER, SELFPAY ==
--- NOTE | 2021-01-24 | DI.RAD.S_ITS ---
PROCEDURE: XR PELVIS 1-2V INDICATIONS: IUD PLACEMENT TECHNIQUE: 1 view(s) of the pelvis acquired. COMPARISON: None. FINDINGS: Bones: No fractures or dislocations. No suspicious bony lesions. Soft tissues: Visualized bowel gas pattern is normal. No suspicious soft tissue calcifications. IUD is centered in the pelvis. IMPRESSION: IUD is centered in the pelvis. Dictated by: Blaze Forde M.D. on 01/24/2021 at 11:55 Approved by: Blaze Forde M.D. on 01/24/2021 at 11:55
== END ==
PROVIDERS: PCP Student in an Organized Health Care Education/Training Program; Referring Provider Family Medicine; Visit Provider Family Medicine
DX: Z30.431 Encounter for routine checking of intrauterine contraceptive device (principal)
CPT/HCPCS: 72170

== ENCOUNTER → 2021-07-07 14:25 | Outpatient (ROUT) | payer OTHER, SELFPAY ==
[2021-07-07 15:07] LABS: Influenza A - CEPHEID Flu A NEGATIVE (NEGATIVE); Influenza B - CEPHEID Flu B NEGATIVE (NEGATIVE)
[2021-07-07 16:21] LABS: COVID-19 CEPHEID PCR (VTM/NP) Negative (Negative)
== END ==
PROVIDERS: PCP Student in an Organized Health Care Education/Training Program; Visit Provider Family Medicine
DX: Z20.822 Contact with and (suspected) exposure to COVID-19 (principal)
CPT/HCPCS: 0240U

== ENCOUNTER → 2021-08-29 08:48 | Outpatient (CLI) | payer OTHER, SELFPAY ==
--- NOTE | 2021-08-29 08:50 | DI.RAD.S_ITS ---
PROCEDURE: XR RIBS LT MIN 3V W CXR1V INDICATIONS: Rib pain TECHNIQUE: 2 views of the left ribs were acquired, along with a single view chest. COMPARISON: None. FINDINGS: Surgical changes and devices: None. Bones and chest wall: No fractures or dislocations. No suspicious bony lesions. Overlying soft tissues appear unremarkable. Lungs and pleura: No pleural effusions or pneumothorax. Lungs appear clear. Mediastinum: Mediastinal contours appear normal. Heart size is normal. IMPRESSION: Chest without acute cardiopulmonary abnormalities or focal airspace disease. No acute/displaced rib fractures identified. Dictated by: Lai Borja M.D. on 08/29/2021 at 10:49 Approved by: Lai Borja M.D. on 08/29/2021 at 10:50
== END ==
PROVIDERS: PCP Internal Medicine; Referring Provider Internal Medicine; Visit Provider Internal Medicine
DX: R07.81 Pleurodynia (principal)
CPT/HCPCS: 71101

== ENCOUNTER → 2021-11-25 15:34 | Outpatient (CLI) | payer OTHER, SELFPAY ==
[2021-11-25 17:58] LABS: HCG Quantitative /Beta subunit 8225 mIU/mL
== END ==
PROVIDERS: PCP Family Medicine; Referring Provider Obstetrics & Gynecology; Visit Provider Obstetrics & Gynecology
DX: O20.9 Hemorrhage in early pregnancy, unspecified (principal); Z3A.00 Weeks of gestation of pregnancy not specified
CPT/HCPCS: 36415; 84702

== ENCOUNTER → 2021-11-27 06:58 | Outpatient (CLI) | payer OTHER, SELFPAY ==
[2021-11-27 09:05] LABS: HCG Quantitative /Beta subunit 6269.6 mIU/mL
== END ==
PROVIDERS: PCP Family Medicine; Referring Provider Obstetrics & Gynecology; Visit Provider Obstetrics & Gynecology
DX: O36.80X0 Pregnancy with inconclusive fetal viability, not applicable or unspecified (principal); Z3A.00 Weeks of gestation of pregnancy not specified
CPT/HCPCS: 36415; 84702

== ENCOUNTER → 2021-12-04 06:58 | Outpatient (CLI) | payer OTHER, SELFPAY ==
[2021-12-04 10:35] LABS: HCG Quantitative /Beta subunit 1644.1 mIU/mL
[2021-12-04 11:40] LABS: COVID19 -Nasal RAPID Negative (Negative)
== END ==
PROVIDERS: PCP Family Medicine; Referring Provider Obstetrics & Gynecology; Visit Provider Obstetrics & Gynecology
DX: Z01.812 Encounter for preprocedural laboratory examination (principal); Z20.822 Contact with and (suspected) exposure to COVID-19; N91.2 Amenorrhea, unspecified
CPT/HCPCS: 36415; 84702; 87635

== ENCOUNTER 2021-12-04 11:12 | Day surgery (SDC) | payer OTHER, SELFPAY ==
[2021-12-03 14:56] VITALS: BMI 59.3
[2021-12-04] VITALS (8 sets, daily range): BP systolic 118–166; BP diastolic 67–88; PULSE 59–94; RESP 10–25; TEMP 36.2–36.4; O2SAT 98–100; BMI 58.1
--- NOTE | 2021-12-04 | PATH_ITS ---
[facility] Accession Number: [id number] . 01 Material submitted: . product of conception - PRODUCTS OF CONCEPTION . 01 Diagnosis: A. Products of Conception, Removal: Immature chorionic villi with fibrosis and focal hydropic change, consistent with products of conception. No evidence of gestational trophoblastic disease or malignancy. Background gestational and inactive endometrium with decidua and features of implantation site. Fibrin and necroinflammatory debris. MRV 12/10/2021 1335 Local . 01 Electronically signed: . Jazzy Mullins MD, Pathologist NPI- [id number] . 01 Gross description: . The specimen is received in formalin labeled with the patient's name and products of conception, and consists of multiple sanders variable spongy to membranous soft tissue fragments admixed with hemorrhagic material aggregating to 7.1 x 4.0 x 1.0 cm. No tissue is identified. [employer] sections are submitted in cassettes A1-A2. ([id number]) /MRV 12/09/2021 1500 Local . 01 Pathologist provided ICD-10: O02.1 . 01 CPT . 183165 Specimen Comment: A courtesy copy of this report has been sent to [phone] Performed at: 01 [facility] [address] [place] [address] [address], [place], [place] [id number] MD Jerald Rose MD Phone: [phone]
[2021-12-04] MEDS: LACTATED RINGERS 1,000 ML 42 ML IV (11:38)
--- NOTE | 2021-12-04 12:20 | P.HP_ITS ---
History of Present Illness History of Present Illness Date Patient Seen: 12/04/21 Time Patient Seen: 12:33 Chief complaint: SUCTION D&C Narrative: Patient is a 36-year-old 3 para 1 with a missed at 6 weeks gestation. She is here for a suction D&C. Patient History Medical History (Updated 11/26/21 @ 13:08 by Frances Hernandez MD) Anxiety delivery delivered Chicken pox Depression Hypothyroidism (~2005) Obesity Pre-eclampsia during in third trimester, antepartum Pre-eclampsia in period PTSD (post-traumatic stress disorder) Shingles Surgical History (Updated 11/06/21 @ 20:05 by Blessing Olivares) H/O tooth extraction Previous section (~09/26/19) [place] teeth extracted Family & Social History Family History (Updated 11/06/21 @ 20:06 by Blessing Olivares) Mother Bipolar 1 disorder Cardiomyopathy Obesity Mental health disorder Father Alcoholism Smoker Hypertension Grandmother Myocardial infarction Obesity Grandmother Vascular dementia CVA (cerebral vascular accident) Brother Smoker Obesity Alcoholism Mental health disorder Social History: household members spouse,children lives independently Yes Tobacco & Substance use: Smoking Status Never smoker alcohol intake never Substance Use Type does not use Meds Home Medications and Allergies Home Medications Medication Instructions Recorded Confirmed Type epinephrine 0.3 mg/0.3 mL 0.3 mg IM ONCE PRN anaphylaxis 10/29/21 12/03/21 History injection, auto-injector (EpiPen) levothyroxine 75 mcg tablet 75 mcg PO DAILY 10/29/21 12/04/21 History Allergies Allergy/AdvReac Type Severity Reaction Status Date / Time bee venom protein (honey bee) Allergy Severe Anaphylaxis Verified 12/04/21 11:31 salmon oil Allergy Intermediate Hives Verified 12/04/21 11:31 Latex, Natural Rubber Allergy Mild Rash Verified 12/04/21 11:31 Sulfa (Sulfonamide Allergy Verified 12/04/21 11:31 Antibiotics) Exam Vital Signs (past 8 hours): - 12/04/21 11:35 Temperature 97.1 F L Pulse Rate 79 Respiratory Rate 20 Blood Pressure 141/80 H Pulse Oximetry 98 Oxygen Delivery Method Room Air Oxygen Delivery Method Room Air Narrative Exam Narrative: Generally: Patient lying on gurney, no acute distress Lungs: Clear to auscultation bilaterally Cardiovascular: Regular rate and rhythm Abdomen: Obese. Well-healed Pfannenstiel scar. Extremities: 1+ edema Assessment & Plan Assessment & Plan narrative: Assessment: 36-year-old 3 para 1 with a missed at 6 weeks gestation Blood type A positive Plan: Suction D&C The risks, benefits, and alternatives to the procedure were explained to the patient. The risks including bleeding, infection, and uterine perforation. She understands these risks and agrees to proceed. A full par Q was held and consent form was signed. COVID-19 COVID-19 status: Negative Result date/Date tested (Pos, Neg/Pending): 12/04/21 Time Spent With Patient Time with patient: less than 30 minutes Critical Care time: I spent a total of [] minutes of critical care time on this patient's care today; this time is exclusive of procedural time.
--- NOTE | 2021-12-04 12:21 | SUR.OPER ---
Lithotomy on padded OR bed, head on pillow, arms secured on padded arm boards at <90 degrees abduction. Legs secured in padded yellow fins stirrups.
--- NOTE | 2021-12-04 12:21 | PM.PREOP ---
Pre-operative Note COVID-19 COVID-19 status: Negative Result date/Date tested (Pos, Neg/Pending): 12/04/21 Criteria for continued procedure: Delay expected to result in less-positive ultimate med/surg outcome Interval Note History & Physical reviewed/Exam performed by Physician: Yes Changes to H&P: No H&P completed within 30 days and has changed as indicated here:: 12/04/21
--- NOTE | 2021-12-04 13:11 | PM.GYNOP.1 ---
Operative Date/Time/Diagnoses Date of procedure: 12/04/21 Time of procedure: 13:11 Pre-op diagnosis: Missed at 6 weeks gestation Post-op diagnosis: same Procedure & Clinicians Procedure: Procedures Operation Date: 12/04/21 12:45 Actual Procedure Side Surgeon sanford Hernandez MD Indications: Missed at 6 weeks gestation Surgeon: Frances Hernandez Anesthesia Type: General (LMA) Operative Notes Findings: 8 week size anteverted uterus Large amount of products conception Closure Type: not applicable Specimen(s): products of conception Estimated blood loss (mL): 100 Blood products transfused: none Procedure in detail: After informed consent was obtained, the patient was taken to the operating room where she was placed in the dorsal supine position. After adequate LMA general anesthesia was achieved, she was placed in the dorsal lithotomy position, and prepped and draped in the usual sterile fashion. A time-out was performed. A bivalve speculum was placed into the vagina and the anterior lip of the cervix was grasped with a single-tooth tenaculum. The cervical os was sequentially dilated until the # 7 curved plastic curette could pass easily into the endometrial cavity. Several passes with suction revealed tissue and fluid. The suction curette was removed. Gentle sharp curettage was performed yielding moderate amount of tissue. Several more passes with suction revealed tissue on the first pass and blood only on the last 2. The curette was removed from the uterus. The single-tooth tenaculum was removed from the anterior lip of the cervix. The bivalve speculum was removed from the vagina. Sponge, lap, and instrument counts were correct x2. The patient tolerated the procedure well, and was taken to PACU in stable condition. Complications: none Post-operative Condition: stable Disposition: PACU Plan for aftercare: Home after recovery
== END 2021-12-04 13:54 | disposition home or self-care (01) ==
PROVIDERS: PCP Family Medicine; Referring Provider Obstetrics & Gynecology; Visit Provider Obstetrics & Gynecology
PROC: (CPT 58120; principal; 2021-12-04 12:45)
DX: O02.1 Missed abortion (principal); Z3A.01 Less than 8 weeks gestation of pregnancy; E03.9 Hypothyroidism, unspecified; F43.10 Post-traumatic stress disorder, unspecified; E66.9 Obesity, unspecified; Z01.812 Encounter for preprocedural laboratory examination; Z20.822 Contact with and (suspected) exposure to COVID-19; N91.2 Amenorrhea, unspecified
CPT/HCPCS: 59820; 36415; 84702; 87635; J1100; J1885; J2250; J2405; J2704; J3010

== ENCOUNTER → 2022-01-15 09:19 | Outpatient (CLI) | payer OTHER, SELFPAY ==
[2022-01-15 11:16] LABS: Free T4, Direct Thyroxine 1.06 ng/dL (0.78-2.19)
[2022-01-15 11:30] LABS: Thyroid Stimulating Hormone 2.58 uIU/mL (0.47-4.68)
[2022-01-19 16:09] LABS: Dilute Russell Viper Venom 45.1 sec (0.0-47.0); Lupus Reflex Interpretation Comment: (.); PTT-LA 42.5 sec (0.0-51.9)
[2022-01-19 21:23] LABS: B2-Glycoprotein I IgA AB < 9 (0-25); B2-Glycoprotein I IgG AB < 9 (0-20); B2-Glycoprotein I IgM AB < 9 (0-32); Cardiolipin Ab IgA < 9 APL U/mL (0-11); Cardiolipin Ab IgG < 9 GPL U/mL (0-14); Cardiolipin Ab IgM < 9 MPL U/mL (0-12); Dilute Russell Viper Venom 37.7 sec (0.0-47.0); Lupus Reflex Interpretation Comment: (.); PTT-LA 31.5 sec (0.0-51.9)
[2022-01-20 14:38] LABS: ANA Screen, IFA Negative (.)
[2022-02-02 10:36] LABS: Cardiolipin IgA Negative (.)
== END ==
PROVIDERS: PCP Family Medicine; Referring Provider Obstetrics & Gynecology; Visit Provider Obstetrics & Gynecology
DX: O26.21 Pregnancy care for patient with recurrent pregnancy loss, first trimester (principal)
CPT/HCPCS: 36415; 83520; 84146; 84439; 84443; 85598; 85613; 85732; 86038; 86146; 86147; 86148

== ENCOUNTER → 2023-10-28 15:29 | Outpatient (CLI) | payer OTHER, SELFPAY ==
[2023-10-28 17:50] LABS: HCG Quantitative /Beta subunit 409.94 mIU/mL
== END ==
PROVIDERS: PCP Family Medicine; Referring Provider Obstetrics & Gynecology; Visit Provider Obstetrics & Gynecology
DX: N96 Recurrent pregnancy loss (principal)
CPT/HCPCS: 36415; 84702

== ENCOUNTER → 2023-10-30 08:05 | Outpatient (CLI) | payer OTHER, SELFPAY ==
[2023-10-30 09:27] LABS: HCG Quantitative /Beta subunit 936.01 mIU/mL
== END ==
PROVIDERS: PCP Family Medicine; Referring Provider Obstetrics & Gynecology; Visit Provider Obstetrics & Gynecology
DX: N96 Recurrent pregnancy loss (principal)
CPT/HCPCS: 36415; 84702

== ENCOUNTER → 2023-11-02 07:15 | Outpatient (CLI) | payer OTHER, SELFPAY ==
[2023-11-02 08:50] LABS: HCG Quantitative /Beta subunit 3219.7 mIU/mL
== END ==
PROVIDERS: PCP Family Medicine; Referring Provider Obstetrics & Gynecology; Visit Provider Obstetrics & Gynecology
DX: N96 Recurrent pregnancy loss (principal); N91.2 Amenorrhea, unspecified
CPT/HCPCS: 36415; 84702

== ENCOUNTER → 2023-11-05 07:52 | Outpatient (CLI) | payer OTHER, SELFPAY ==
[2023-11-05 11:11] LABS: HCG Quantitative /Beta subunit 9095.8 mIU/mL
== END ==
LOC: LAB 07:53
PROVIDERS: PCP Family Medicine; Referring Provider Obstetrics & Gynecology; Visit Provider Obstetrics & Gynecology
DX: N96 Recurrent pregnancy loss (principal); N91.2 Amenorrhea, unspecified
CPT/HCPCS: 36415; 84702

== ENCOUNTER → 2023-11-09 08:14 | Outpatient (CLI) | payer OTHER, SELFPAY ==
[2023-11-09 11:34] LABS: HCG Quantitative /Beta subunit 21508 mIU/mL
== END ==
PROVIDERS: PCP Family Medicine; Referring Provider Obstetrics & Gynecology; Visit Provider Obstetrics & Gynecology
DX: N96 Recurrent pregnancy loss (principal); N91.2 Amenorrhea, unspecified
CPT/HCPCS: 36415; 84702

== ENCOUNTER → 2023-11-23 06:35 | Outpatient (CLI) | payer OTHER, SELFPAY ==
--- NOTE | 2023-11-23 06:37 | DI.US.S_ITS ---
PROCEDURE: US OB <= 14 WEEKS FETUS INDICATIONS: DATES OUTSIDE/PRIOR DATING DATA: Last menstrual period (LMP): 09/26/2023. LMP-based estimated date of delivery (LIYAH): 07/02/2024. First dating scan (date and location): 11/23/2023. Estimated date of delivery (LIYAH) from first dating scan: 07/04/2024. The calculations are made using the ultrasound LIYAH of 07/04/2024. TECHNIQUE: Real-time scanning was performed of the fetus and maternal pelvic organs, with image documentation. Endovaginal scanning was also performed to better visualize the fetus and maternal ovaries. COMPARISON: [facility], US, US OB <= 14 WEEKS FETUS, 11/25/2021, 15:27. FINDINGS: Embryo: 1.6 cm, 8 weeks 0 days Heart rate: 169 beats per minute Other: There is either a subchorionic hemorrhage or an early twin demise measuring 2.7 x 0.9 x 2.6 cm. Maternal organs: Ovaries not visualized.. IMPRESSION: 1. Living early 1st trimester intrauterine with crown-rump length and heartbeat measuring 8 weeks 0 days. 2. There is a crescentic collection present which either represents a small subchorionic hemorrhage or an early twin demise. We strive to produce accurate, complete, and clear reports of imaging services. To assist us in improving patient care, this report was composed using standard report templates and voice recognition software. Therefore, it may contain abnormal punctuation, insertions and/or omissions. Occasional wrong-word or sound-alike substitutions may occur. Though we review the report and make efforts to correct it, we do recommend that the report be read carefully in proper context to recognize any text inaccuracies. Dictated by: Phill Cervantes M.D. on 11/23/2023 at 9:30 Approved by: Phill Cervantes M.D. on 11/23/2023 at 9:32
== END ==
LOC: US 06:36
PROVIDERS: PCP Family Medicine; Referring Provider Obstetrics & Gynecology; Visit Provider Obstetrics & Gynecology
DX: O26.21 Pregnancy care for patient with recurrent pregnancy loss, first trimester (principal); O99.211 Obesity complicating pregnancy, first trimester; E66.01 Morbid (severe) obesity due to excess calories; Z3A.08 8 weeks gestation of pregnancy; Z68.44 Body mass index [BMI] 60.0-69.9, adult
CPT/HCPCS: 76801; 76817

== ENCOUNTER → 2023-12-07 15:00 | Outpatient (CLI) | payer OTHER, SELFPAY ==
[2023-12-07 20:49] LABS: Urine N gonorrhoeae NOT DETECTED
[2023-12-07 20:50] LABS: Urine Chlamydia NOT DETECTED
== END ==
PROVIDERS: PCP Family Medicine; Visit Provider Obstetrics & Gynecology
DX: Z34.81 Encounter for supervision of other normal pregnancy, first trimester (principal); Z3A.10 10 weeks gestation of pregnancy
CPT/HCPCS: 87491; 87591

== ENCOUNTER → 2023-12-07 15:37 | Outpatient (CLI) | payer OTHER, SELFPAY ==
[2023-12-07 16:38] LABS: Add Manual Diff / Slide Review NO; Basophils Absolute Auto 100 /uL (0-100); Basophils Percent Auto 0.6 % (0-2); Eosinophils Absolute Auto 100 /uL (0-450); Eosinophils Percent Auto 1.1 % (2-4); Hematocrit 40.3 % (36-46); Hemoglobin 13.5 g/dL (12.0-16.0); Lymphocytes Absolute Auto 1300 /uL (1100-4500); Lymphocytes Percent Auto 14.6 % (25-40); Mean Corpuscular HGB Conc 33.5 % (30-36); Mean Corpuscular Hemoglobin 29.8 PG (26-34); Monocytes Absolute Auto 500 /uL (0-900); Monocytes Percent Auto 4.9 % (3-14); Neutrophils Absolute Auto 7300 /uL (1500-7000); Neutrophils Percent Auto 78.8 % (50-75); Platelet Count 293 X10^3/uL (150-400); Red Blood Cell Count 4.53 X10^6/uL (4.0-5.2); Red Cell Distribution Width 13.7 % (11.6-14.8); White Blood Cell Count 9.3 X10^3/uL (4.5-11.0)
[2023-12-07 17:10] LABS: Natera Collection Specimen Collected
[2023-12-07 17:21] LABS: Alanine Aminotransferase 23 IU/L (<35); Aspartate Aminotransferase 28 IU/L (14-36); BUN Creatinine Ratio 24.1 (6-22); Blood Urea Nitrogen 13 mg/dL (7-17); Estimated Glomerular Filt Rate > 60 mL/min (>60); Uric Acid 4.2 mg/dL (2.5-6.2)
[2023-12-07 17:30] LABS: Free T4, Direct Thyroxine 0.79 ng/dL (0.78-2.19)
[2023-12-07 17:44] LABS: Thyroid Stimulating Hormone 3.85 uIU/mL (0.47-4.68)
[2023-12-07 18:17] LABS: Hemoglobin A1C% w Est Avg Glu 4.9 % (4.0-6.0)
[2023-12-08 07:37] LABS: RPR Screen Non Reactive (Non Reactive)
[2023-12-08 08:11] LABS: Varicella IgG Antibody Reactive (Non Reactive)
== END ==
PROVIDERS: PCP Family Medicine; Referring Provider Obstetrics & Gynecology; Visit Provider Obstetrics & Gynecology
DX: O09.521 Supervision of elderly multigravida, first trimester (principal); O09.299 Supervision of pregnancy with other poor reproductive or obstetric history, unspecified trimester; Z87.59 Personal history of other complications of pregnancy, childbirth and the puerperium; E66.01 Morbid (severe) obesity due to excess calories; Z3A.10 10 weeks gestation of pregnancy
CPT/HCPCS: 36415; 80055; 82565; 83036; 84439; 84443; 84450; 84460; 84520; 84550; 86787; 86803; 86850; 86900; 86901; 87389; 87491; 87591

== ENCOUNTER → 2024-02-11 09:10 | Outpatient (CLI) | payer OTHER, SELFPAY ==
[2024-02-14 11:11] LABS: Candida species Negative (Negative); Gardnerella vaginalis Positive (Negative); Trichomoas vaginalis Negative (Negative)
== END ==
PROVIDERS: PCP Family Medicine; Visit Provider Obstetrics & Gynecology
DX: N89.8 Other specified noninflammatory disorders of vagina (principal)
CPT/HCPCS: 87480; 87510; 87660

== ENCOUNTER → 2024-03-29 06:59 | Outpatient (CLI) | payer OTHER, SELFPAY ==
[2024-03-29 09:43] LABS: GTT (PREG) 1 Hour PP 50gm Dose 150 mg/dL (76-139)
== END ==
PROVIDERS: PCP Family Medicine; Referring Provider Obstetrics & Gynecology; Visit Provider Obstetrics & Gynecology
DX: O09.90 Supervision of high risk pregnancy, unspecified, unspecified trimester (principal)
CPT/HCPCS: 36415; 82950

== ENCOUNTER → 2024-04-03 07:58 | Outpatient (CLI) | payer OTHER, SELFPAY ==
[2024-04-03 09:06] LABS: Glucose Fasting Gestational 94 mg/dL (76-95)
[2024-04-03 10:11] LABS: Glucose 1 Hour Gest 138 mg/dL (76-180)
[2024-04-03 11:20] LABS: Glucose 2 Hour Gest 130 mg/dL (76-155)
[2024-04-03 11:27] LABS: Glucose Tol Interp,Gestational INTERPRETATION
[2024-04-03 12:16] LABS: Glucose 3 Hour Gest 74 mg/dL (76-140)
== END ==
PROVIDERS: PCP Family Medicine; Referring Provider Obstetrics & Gynecology; Visit Provider Obstetrics & Gynecology
DX: O09.90 Supervision of high risk pregnancy, unspecified, unspecified trimester (principal)
CPT/HCPCS: 36415; 82951; 82952

== ENCOUNTER → 2024-05-08 07:50 | Outpatient (CLI) | payer OTHER, SELFPAY ==
[2024-05-08 09:36] LABS: Add Manual Diff / Slide Review NO; Basophils Absolute Auto 0 /uL (0-100); Basophils Percent Auto 0.3 % (0-2); Eosinophils Absolute Auto 100 /uL (0-450); Eosinophils Percent Auto 0.9 % (2-4); Hematocrit 36.1 % (36-46); Hemoglobin 12.2 g/dL (12.0-16.0); Lymphocytes Absolute Auto 1300 /uL (1100-4500); Lymphocytes Percent Auto 14.8 % (25-40); Mean Corpuscular HGB Conc 33.8 % (30-36); Mean Corpuscular Hemoglobin 30.5 PG (26-34); Mean Corpuscular Volume 90.1 fL (80-100); Monocytes Absolute Auto 500 /uL (0-900); Monocytes Percent Auto 5.9 % (3-14); Neutrophils Absolute Auto 7000 /uL (1500-7000); Neutrophils Percent Auto 78.1 % (50-75); Platelet Count 244 X10^3/uL (150-400); Red Blood Cell Count 4.01 X10^6/uL (4.0-5.2); Red Cell Distribution Width 14.2 % (11.6-14.8)
[2024-05-08 10:10] LABS: Free T4, Direct Thyroxine 0.48 ng/dL (0.78-2.19)
[2024-05-08 10:24] LABS: Thyroid Stimulating Hormone 2.65 uIU/mL (0.47-4.68)
[2024-05-09 04:36] LABS: RPR Screen Non Reactive (Non Reactive)
== END ==
PROVIDERS: PCP Family Medicine; Referring Provider Obstetrics & Gynecology; Visit Provider Obstetrics & Gynecology
DX: O34.219 Maternal care for unspecified type scar from previous cesarean delivery (principal); O09.90 Supervision of high risk pregnancy, unspecified, unspecified trimester
CPT/HCPCS: 36415; 84439; 84443; 85025; 86592

== ENCOUNTER → 2024-05-09 09:01 | Outpatient (CLI) | payer OTHER, SELFPAY ==
[2024-05-09 10:49] LABS: Alanine Aminotransferase 15 IU/L (<35); Albumin 3.1 g/dL (3.5-5.0); Albumin Globulin Ratio 1.2 (1.0-2.8); Alkaline Phosphatase 109 U/L (38-126); Aspartate Aminotransferase 18 IU/L (14-36); BUN Creatinine Ratio 6.7 (6-22); Bilirubin Total 0.6 mg/dL (0.2-1.3); Blood Urea Nitrogen 4 mg/dL (7-17); Calcium 9.4 mg/dL (8.4-10.2); Carbon Dioxide 21 mmol/L (22-32); Chloride 105 mmol/L (98-107); Estimated Glomerular Filt Rate > 60 mL/min (>60); Globulin 2.5 g/dL (1.7-4.1); Glucose 101 mg/dL (70-100); HEMOLYSIS < 15 (0-50); Potassium 4.3 mmol/L (3.4-5.1); Sodium 133 mmol/L (137-145); Total Protein 5.6 g/dL (6.3-8.2)
== END ==
PROVIDERS: PCP Family Medicine; Referring Provider Obstetrics & Gynecology; Visit Provider Obstetrics & Gynecology
DX: O09.299 Supervision of pregnancy with other poor reproductive or obstetric history, unspecified trimester (principal)
CPT/HCPCS: 36415; 80053

== ENCOUNTER 2024-05-17 17:57 | Observation (INO) | payer OTHER, SELFPAY ==
--- NOTE | 2024-05-17 18:41 | DI.US.S_ITS ---
PROCEDURE: US PERIPH VENOUS LOW EXTREM BI INDICATIONS: possible DVT TECHNIQUE: Real-time imaging, as well as color and pulse Doppler interrogation, were performed of the deep veins of both legs from the inguinal ligament to the popliteal fossa, with documentation of the visualized calf veins. COMPARISON: None. FINDINGS: Right: The common femoral, femoral, popliteal, and the visualized calf veins are normally compressible, and free of intraluminal thrombus. Color and pulse Doppler demonstrate normal phasic intravascular flow. There is normal augmentation response to distal compression maneuver. Left: The common femoral, femoral, popliteal, and the visualized calf veins are normally compressible, and free of intraluminal thrombus. Color and pulse Doppler demonstrate normal phasic intravascular flow. There is normal augmentation response to distal compression maneuver. IMPRESSION: No findings of deep venous thrombosis in either lower extremity. Dictated by: Lai Borja M.D. on 05/17/2024 at 18:51 Approved by: Lai Borja M.D. on 05/17/2024 at 18:52
--- NOTE | 2024-05-17 19:42 | P.TNLD_ITS ---
Visit Information Visit Information Date of evaluation: 05/17/24 Primary OB Provider: Billy Garland On-call OB Provider: Prerna Brito Reason for Evaluation: Yes other Comments/Additional reasons for admission: 38yo at 33w3d presents for further revaluation of concern for BP elevation, LLE swelling with concern for DVT. Pt is followed by MFM, co- management with [facility] (Dr. Garland) in setting of CHTN, advanced BMI (63), h/o prior CS, AMA. Pt reports she is currently taking labetalol 200mg BID but did not take AM dose as scheduled. Had called [facility] provider with BP values as well as concerns for DVT and was instructed to present to local facility for evaluation. +FM, denies VB, LOF, dysuria, cramping/ctx. Vital Signs Vital Signs: 140/90 138/86 [facility] Medical History (Updated 05/23/24 @ 08:30 by Billy Garland MD) with inconclusive viability Chicken pox Shingles Depression Anxiety PTSD (post-traumatic stress disorder) Obesity delivery delivered Pre-eclampsia in period Pre-eclampsia during in third trimester, antepartum Surgical History (Updated 11/30/23 @ 15:48 by Bre Lao, RN) History of dilation and curettage H/O tooth extraction [place] teeth extracted Previous section (~09/26/19) Family History (Updated 11/30/23 @ 16:21 by Bre Lao, RN) Mother Bipolar 1 disorder Cardiomyopathy Obesity Mental health disorder Hypothyroidism Father Alcoholism Smoker Hypertension Alcoholic cirrhosis Grandmother Myocardial infarction Obesity COPD (chronic obstructive pulmonary disease) Smoker Grandmother Vascular dementia CVA (cerebral vascular accident) TIA (transient ischemic attack) Diabetes mellitus Depression Anxiety Pancytopenia Bone marrow failure Brother Smoker Obesity Alcoholism Mental health disorder Anxiety Brother Bipolar disorder ADHD Grandfather Colon cancer Grandfather Cancer Social History (System 10/23/21 @ 11:02 by Laura Matute) marital status: number of children: 1 household members: spouse and children lives independently: Yes caregiver/support person: Yes housing: house pets and animals: Yes (cat, manages litter box) education level: college (associate's degree) 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) current occupational exposures/hazards: No hadley/congregational: Yazidism special hadley needs: No travel history: recent (domestic only) seatbelt use: always water heater temp set < 120 deg: Yes working smoke detector in home: Yes fire extinguisher in home: No carbon monox detector in home: Yes firearms in home: Yes firearms unloaded and locked: Yes do you feel safe at home: Yes Smoking Status: Never smoker second hand exposure: No alcohol intake: former (very rarely when not ) substance use type: does not use during the past year weight has: increased > 10 lbs well-balanced diet: about half the time daily servings fruits/ve-4 caffeine: Yes (occasional cup black tea or coffee) Type(s) of exercise: none frequency: 1-2 times per week Evaluation Evaluation Baseline heart rate: 140 Variability: Average (6-10) monitor accelerations: Present Monitor Decelerations: Absent Comments: difficult surveillance secondary to patient habitus, reactive NST Diagnosis, Plan/Disposition Plan/Disposition Plan: BP normalized following administration of home labetalol duplex doppler venous studies obtained and wnl, no evidence of deep or superficial thrombosis routine precautions, f/u with primary MFM as scheduled OB Disposition: home
== END 2024-05-17 20:00 | disposition home or self-care (01) ==
PROVIDERS: Admitting Provider Obstetrics & Gynecology; PCP Family Medicine; Referring Provider Obstetrics & Gynecology; Visit Provider Obstetrics & Gynecology
DX: O10.913 Unspecified pre-existing hypertension complicating pregnancy, third trimester (principal); O09.523 Supervision of elderly multigravida, third trimester; Z3A.33 33 weeks gestation of pregnancy
CPT/HCPCS: 59025; 59050; 93970; G0378; G0379

== ENCOUNTER 2024-05-23 08:29 | Outpatient (CLI) | payer OTHER, SELFPAY | END 2024-05-23 09:20 | disposition home or self-care (01) | LOC: LABOR 08:40 → OB 10:45 | PROVIDERS: PCP Family Medicine; Referring Provider Obstetrics & Gynecology; Visit Provider Obstetrics & Gynecology | DX: O13.3 Gestational [pregnancy-induced] hypertension without significant proteinuria, third trimester (principal); O09.523 Supervision of elderly multigravida, third trimester; Z3A.34 34 weeks gestation of pregnancy | CPT/HCPCS: 59025; G0378; G0379 ==

== ENCOUNTER 2024-05-26 07:44 | Outpatient (CLI) | payer OTHER, SELFPAY ==
[2024-05-26 08:41] VITALS: BP 125/74
== END 2024-05-26 08:45 | disposition home or self-care (01) ==
LOC: LABOR 07:59 → OB 05-29 08:40
PROVIDERS: PCP Family Medicine; Referring Provider Obstetrics & Gynecology; Visit Provider Obstetrics & Gynecology
DX: O13.3 Gestational [pregnancy-induced] hypertension without significant proteinuria, third trimester (principal); O09.523 Supervision of elderly multigravida, third trimester; Z3A.34 34 weeks gestation of pregnancy
CPT/HCPCS: 59025; G0378; G0379

== ENCOUNTER 2024-05-31 13:56 | Outpatient (CLI) | payer OTHER, SELFPAY | END 2024-05-31 14:36 | disposition home or self-care (01) | LOC: LABOR 14:24 → OB 06-01 07:24 | PROVIDERS: PCP Family Medicine; Referring Provider Obstetrics & Gynecology; Visit Provider Obstetrics & Gynecology | DX: O13.3 Gestational [pregnancy-induced] hypertension without significant proteinuria, third trimester (principal); O09.523 Supervision of elderly multigravida, third trimester; Z3A.35 35 weeks gestation of pregnancy | CPT/HCPCS: 59025; G0378; G0379 ==

== ENCOUNTER 2024-06-02 07:51 | Outpatient (CLI) | payer OTHER, SELFPAY ==
--- NOTE | 2024-06-02 08:34 | P.TNLD_ITS ---
Visit Information Visit Information Date of evaluation: 06/02/24 Primary OB Provider: Billy Garland On-call OB Provider: Lexie Nelson Reason for Evaluation: Yes non-stress test non-stress test reason: hypertension/pre-eclampsia and other (AMA, high BMI) Vital Signs Vital Signs: Blood pressure 136/63 pulse of 82 [facility] Medical History (Updated 06/02/24 @ 08:40 by Lexie Nelson MD) with inconclusive viability Chicken pox Shingles Depression Anxiety PTSD (post-traumatic stress disorder) Obesity delivery delivered Pre-eclampsia in period Pre-eclampsia during in third trimester, antepartum Surgical History (Updated 11/30/23 @ 15:48 by Bre Lao, RN) History of dilation and curettage H/O tooth extraction [place] teeth extracted Previous section (~09/26/19) Family History (Updated 11/30/23 @ 16:21 by Bre Lao, RN) Mother Bipolar 1 disorder Cardiomyopathy Obesity Mental health disorder Hypothyroidism Father Alcoholism Smoker Hypertension Alcoholic cirrhosis Grandmother Myocardial infarction Obesity COPD (chronic obstructive pulmonary disease) Smoker Grandmother Vascular dementia CVA (cerebral vascular accident) TIA (transient ischemic attack) Diabetes mellitus Depression Anxiety Pancytopenia Bone marrow failure Brother Smoker Obesity Alcoholism Mental health disorder Anxiety Brother Bipolar disorder ADHD Grandfather Colon cancer Grandfather Cancer Social History (System 10/23/21 @ 11:02 by Laura Matute) marital status: number of children: 1 household members: spouse and children lives independently: Yes caregiver/support person: Yes housing: house pets and animals: Yes (cat, manages litter box) education level: college (associate's degree) 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) current occupational exposures/hazards: No hadley/rastafari: [employer] special hadley needs: No travel history: recent (domestic only) seatbelt use: always water heater temp set < 120 deg: Yes working smoke detector in home: Yes fire extinguisher in home: No carbon monox detector in home: Yes firearms in home: Yes firearms unloaded and locked: Yes do you feel safe at home: Yes Smoking Status: Never smoker second hand exposure: No alcohol intake: former (very rarely when not ) substance use type: does not use during the past year weight has: increased > 10 lbs well-balanced diet: about half the time daily servings fruits/ve-4 caffeine: Yes (occasional cup black tea or coffee) Type(s) of exercise: none frequency: 1-2 times per week Evaluation Evaluation Baseline heart rate: 130 Variability: Moderate (11-25) monitor accelerations: Present Monitor Decelerations: Absent Category of Tracing: Reactive Status: Category l Diagnosis, Plan/Disposition Final Diagnosis (1) Severe obesity due to excess calories affecting : Status: Acute (2) Gestational hypertension: Status: Acute (3) Advanced maternal age (AMA) in : Status: Acute (4) 35 weeks gestation of : Status: Acute Plan/Disposition Plan: Reactive nonstress test. Patient has an appointment with MFM next week. Continue biweekly NSTs OB Disposition: home
== END 2024-06-02 08:40 | disposition home or self-care (01) ==
LOC: LABOR 09:00 → OB 14:23
PROVIDERS: PCP Family Medicine; Referring Provider Obstetrics & Gynecology; Visit Provider Obstetrics & Gynecology
DX: O09.523 Supervision of elderly multigravida, third trimester (principal); O13.3 Gestational [pregnancy-induced] hypertension without significant proteinuria, third trimester; O99.213 Obesity complicating pregnancy, third trimester; E66.01 Morbid (severe) obesity due to excess calories; Z3A.35 35 weeks gestation of pregnancy
CPT/HCPCS: 59025; G0378; G0379

== ENCOUNTER 2024-06-05 13:04 | Outpatient (CLI) | payer OTHER, SELFPAY ==
--- NOTE | 2024-06-05 13:37 | P.TNLD_ITS ---
Visit Information Visit Information Date of evaluation: 06/05/24 Primary OB Provider: Billy Garland On-call OB Provider: Lexie Nelson Reason for Evaluation: Yes non-stress test non-stress test reason: other (Advanced maternal age and obesity) Vital Signs Vital Signs: Pulse 66, temperature 36.2? [facility] Medical History (Updated 06/05/24 @ 13:39 by Lexie Nelson MD) with inconclusive viability Chicken pox Shingles Depression Anxiety PTSD (post-traumatic stress disorder) Obesity delivery delivered Pre-eclampsia in period Pre-eclampsia during in third trimester, antepartum Surgical History (Updated 11/30/23 @ 15:48 by Bre Lao, RN) History of dilation and curettage H/O tooth extraction [place] teeth extracted Previous section (~09/26/19) Family History (Updated 11/30/23 @ 16:21 by Bre Lao, RN) Mother Bipolar 1 disorder Cardiomyopathy Obesity Mental health disorder Hypothyroidism Father Alcoholism Smoker Hypertension Alcoholic cirrhosis Grandmother Myocardial infarction Obesity COPD (chronic obstructive pulmonary disease) Smoker Grandmother Vascular dementia CVA (cerebral vascular accident) TIA (transient ischemic attack) Diabetes mellitus Depression Anxiety Pancytopenia Bone marrow failure Brother Smoker Obesity Alcoholism Mental health disorder Anxiety Brother Bipolar disorder ADHD Grandfather Colon cancer Grandfather Cancer Social History (System 10/23/21 @ 11:02 by Laura Matute) marital status: number of children: 1 household members: spouse and children lives independently: Yes caregiver/support person: Yes housing: house pets and animals: Yes (cat, manages litter box) education level: college (associate's degree) 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) current occupational exposures/hazards: No hadley/church: [employer] special hadley needs: No travel history: recent (domestic only) seatbelt use: always water heater temp set < 120 deg: Yes working smoke detector in home: Yes fire extinguisher in home: No carbon monox detector in home: Yes firearms in home: Yes firearms unloaded and locked: Yes do you feel safe at home: Yes second hand exposure: No alcohol intake: former (very rarely when not ) substance use type: does not use during the past year weight has: increased > 10 lbs well-balanced diet: about half the time daily servings fruits/ve-4 caffeine: Yes (occasional cup black tea or coffee) Type(s) of exercise: none frequency: 1-2 times per week Evaluation Evaluation Baseline heart rate: 130 Variability: Moderate (11-25) monitor accelerations: Present Monitor Decelerations: Absent Category of Tracing: Reactive Status: Category l Diagnosis, Plan/Disposition Final Diagnosis (1) Severe obesity due to excess calories affecting : Status: Acute (2) Advanced maternal age (AMA) in : Status: Acute (3) 36 weeks gestation of : Status: Acute Plan/Disposition Plan: Reactive nonstress test. Continue twice weekly nonstress tests and weekly office visits OB Disposition: home
== END 2024-06-05 13:40 | disposition home or self-care (01) ==
LOC: LABOR 13:08 → OB 14:04
PROVIDERS: PCP Family Medicine; Referring Provider Specialist; Visit Provider Specialist
DX: O09.523 Supervision of elderly multigravida, third trimester (principal); O99.213 Obesity complicating pregnancy, third trimester; E66.01 Morbid (severe) obesity due to excess calories; Z3A.36 36 weeks gestation of pregnancy
CPT/HCPCS: 59025; G0378; G0379

== ENCOUNTER 2024-06-13 07:55 | Outpatient (CLI) | payer OTHER, SELFPAY | END 2024-06-13 08:35 | disposition home or self-care (01) | LOC: LABOR 08:05 → OB 09:23 | PROVIDERS: PCP Family Medicine; Referring Provider Obstetrics & Gynecology; Visit Provider Obstetrics & Gynecology | DX: O13.3 Gestational [pregnancy-induced] hypertension without significant proteinuria, third trimester (principal); O09.523 Supervision of elderly multigravida, third trimester; O99.213 Obesity complicating pregnancy, third trimester; E66.9 Obesity, unspecified; Z3A.37 37 weeks gestation of pregnancy | CPT/HCPCS: 59025; G0378; G0379 ==

== ENCOUNTER 2024-06-21 09:58 | Outpatient (CLI) | payer OTHER, SELFPAY ==
--- NOTE | 2024-06-21 10:52 | P.TNLD_ITS ---
Visit Information Visit Information Date of evaluation: 06/21/24 Primary OB Provider: Billy Garland On-call OB Provider: Lexie Nelson Reason for Evaluation: Yes non-stress test Comments/Additional reasons for admission: Obesity and advanced maternal age [facility] Medical History (Updated 06/21/24 @ 10:56 by Lexie Nelson MD) with inconclusive viability Chicken pox Shingles Depression Anxiety PTSD (post-traumatic stress disorder) Obesity delivery delivered Pre-eclampsia in period Pre-eclampsia during in third trimester, antepartum Surgical History (Updated 11/30/23 @ 15:48 by Bre Lao, RN) History of dilation and curettage H/O tooth extraction [place] teeth extracted Previous section (~09/26/19) Family History (Updated 11/30/23 @ 16:21 by Bre Lao, RN) Mother Bipolar 1 disorder Cardiomyopathy Obesity Mental health disorder Hypothyroidism Father Alcoholism Smoker Hypertension Alcoholic cirrhosis Grandmother Myocardial infarction Obesity COPD (chronic obstructive pulmonary disease) Smoker Grandmother Vascular dementia CVA (cerebral vascular accident) TIA (transient ischemic attack) Diabetes mellitus Depression Anxiety Pancytopenia Bone marrow failure Brother Smoker Obesity Alcoholism Mental health disorder Anxiety Brother Bipolar disorder ADHD Grandfather Colon cancer Grandfather Cancer Social History (System 10/23/21 @ 11:02 by Laura Matute) marital status: number of children: 1 household members: spouse and children lives independently: Yes caregiver/support person: Yes housing: house pets and animals: Yes (cat, manages litter box) education level: college (associate's degree) 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) current occupational exposures/hazards: No hadley/druze: [employer] special hadley needs: No travel history: recent (domestic only) seatbelt use: always water heater temp set < 120 deg: Yes working smoke detector in home: Yes fire extinguisher in home: No carbon monox detector in home: Yes firearms in home: Yes firearms unloaded and locked: Yes do you feel safe at home: Yes second hand exposure: No alcohol intake: former (very rarely when not ) substance use type: does not use during the past year weight has: increased > 10 lbs well-balanced diet: about half the time daily servings fruits/ve-4 caffeine: Yes (occasional cup black tea or coffee) Type(s) of exercise: none frequency: 1-2 times per week Evaluation Evaluation Baseline heart rate: 130 Variability: Moderate (11-25) monitor accelerations: Present Monitor Decelerations: Absent Category of Tracing: Reactive Status: Category l Diagnosis, Plan/Disposition Final Diagnosis (1) Gestational hypertension: Status: Acute (2) Advanced maternal age (AMA) in : Status: Acute (3) Uterine scar from previous delivery affecting : Status: Acute (4) Supervision of with other poor reproductive or obstetric history, unspecified trimester: Status: Acute (5) Morbid obesity: Status: Acute (6) H/O pre-eclampsia: Status: Acute Problem details: Onset week 38 (7) 38 weeks gestation of : Status: Acute Plan/Disposition Plan: Reactive nonstress test. Patient delivering [facility] OB Disposition: home
== END 2024-06-21 10:59 | disposition home or self-care (01) ==
LOC: LABOR 10:08 → OB 06-22 06:52
PROVIDERS: PCP Family Medicine; Referring Provider Obstetrics & Gynecology; Visit Provider Obstetrics & Gynecology
DX: O13.3 Gestational [pregnancy-induced] hypertension without significant proteinuria, third trimester (principal); O09.523 Supervision of elderly multigravida, third trimester; O99.213 Obesity complicating pregnancy, third trimester; E66.01 Morbid (severe) obesity due to excess calories; Z87.59 Personal history of other complications of pregnancy, childbirth and the puerperium; Z3A.38 38 weeks gestation of pregnancy
CPT/HCPCS: 59025; G0378; G0379

== ENCOUNTER → 2024-08-01 16:27 | Outpatient (CLI) | payer OTHER, SELFPAY ==
--- NOTE | 2024-08-01 16:28 | DI.US.S_ITS ---
PROCEDURE: US PERIPH VENOUS LOW EXTREM LT INDICATIONS: DVT R/O TECHNIQUE: Real-time imaging, as well as color and pulse Doppler interrogation, were performed of the lower extremity deep veins from the inguinal ligament to the popliteal fossa, with documentation of the visualized calf veins. COMPARISON: None. FINDINGS: The common femoral, femoral, popliteal, and the visualized calf veins are normally compressible, and free of intraluminal thrombus. Color and pulse Doppler demonstrate normal phasic intraluminal flow. There is normal augmentation response to distal compression maneuver. IMPRESSION: No findings of lower extremity deep venous thrombosis. Dictated by: Stephani Engel M.D. on 08/01/2024 at 23:25 Approved by: Stephani Engel M.D. on 08/01/2024 at 23:25
== END ==
PROVIDERS: PCP Family Medicine; Referring Provider Student in an Organized Health Care Education/Training Program; Visit Provider Student in an Organized Health Care Education/Training Program
DX: R60.0 Localized edema (principal); L53.9 Erythematous condition, unspecified; M79.605 Pain in left leg
CPT/HCPCS: 93971

== ENCOUNTER → 2024-08-17 10:08 | Outpatient (ROUT) | payer OTHER, SELFPAY ==
[2024-08-17 10:24] LABS: D Dimer 941 ng/ml (<500)
== END ==
LOC: LAB 10:09
PROVIDERS: PCP Family Medicine; Visit Provider Family Medicine
DX: Z00.00 Encounter for general adult medical examination without abnormal findings (principal)
CPT/HCPCS: 85379

== ENCOUNTER → 2024-09-01 12:40 | Outpatient (ROUT) | payer OTHER, SELFPAY ==
[2024-09-01 12:53] LABS: D Dimer 843 ng/ml (<500)
== END ==
PROVIDERS: PCP Family Medicine; Visit Provider Family Medicine
DX: R60.0 Localized edema (principal)
CPT/HCPCS: 85379

== ENCOUNTER → 2024-10-11 15:42 | Outpatient (ROUT) | payer OTHER, SELFPAY | PROVIDERS: PCP Family Medicine; Visit Provider Family Medicine | DX: R79.89 Other specified abnormal findings of blood chemistry (principal) | CPT/HCPCS: 85379 ==

== ENCOUNTER → 2024-11-27 11:39 | Outpatient (ROUT) | payer OTHER, SELFPAY | PROVIDERS: Family Provider Family Medicine; PCP Family Medicine; Visit Provider Family Medicine | DX: R79.89 Other specified abnormal findings of blood chemistry (principal) | CPT/HCPCS: 85379 ==

== ENCOUNTER → 2024-11-28 09:38 | Outpatient (CLI) | payer OTHER, SELFPAY | LOC: WC 09:38 | PROVIDERS: Family Provider Family Medicine; PCP Family Medicine; Referring Provider Family Medicine; Visit Provider Surgery | DX: E88.2 Lipomatosis, not elsewhere classified (principal); R60.0 Localized edema | CPT/HCPCS: 99203; 99212 ==